=== PATIENT | male | born 1965 | race Caucasian/White ===

== ENCOUNTER → 2017-12-03 | Outpatient (REF) ==
[~2017-12-03] MED LIST: CEPH500C24 PO; OSE75 PO
== END ==
LOC: AUD 09:00
PROVIDERS: ATTEND Family Medicine
DX: Z01.10 Encounter for examination of ears and hearing without abnormal findings (principal)
CPT/HCPCS: 92552

== ENCOUNTER → 2018-12-06 | Outpatient (REF) | LOC: AUD 11:15 | PROVIDERS: ATTEND Family Medicine | DX: Z01.12 Encounter for hearing conservation and treatment (principal) | CPT/HCPCS: 92552 ==

== ENCOUNTER → 2019-01-01 | Outpatient (CLI) | payer BC ==
--- NOTE | 2019-01-01 17:54 | RADIOLOGY IMAGING REPORT ---
FACILITY: [facility] - [place] PATIENT NAME: Donald Tate : 1965 MR: [id number] V: [id number] EXAM DATE: ORDERING PHYSICIAN: RELL LEPE TECHNOLOGIST: Location: [facility] Patient: Donald Tate : 1965 Visit/Account:[id number] Date of Sevice: 01/01/2019 CT CHEST W/O CONTRAST COMPARISON: None. HISTORY: Abnormal results of pulmonary function studies. Decreased office parameter looking for IPF or other etiologies. Decreased vO2 max on stress testing compared to the previous year.. TECHNIQUE: Axial CT of the chest without intravenous contrast, "interstitial lung disease protocol", including discontiguous 1 mm and contiguous 3 mm axial reconstructions, limited prone and limited exp iratory sections. Coronal and sagittal reformats. One of the following dose optimization techniques was utilized in the performance of this exam: auto mated exposure control; adjustment of the mA and/or kV according to patient size; or use of iterative reconstruction technique. Specific details can be referenced in the facility's radiology CT exam op erational policy. CT CHEST FINDINGS: CARDIAC: Unremarkable. MEDIASTINUM/TYRELL: Unremarkable. No enlarged mediastinal nodes. No hilar adenopathy within the limi tations of a noncontrast study. VASCULATURE: Unremarkable. CHEST WALL: Unremarkable. No mass or axillary adenopathy. LUNGS/PLEURA: The lungs are well-inflated and clear. No fibrotic changes or sequela of interstitial lung disease. There is no honeycombing, reticular opacities, bronchiectasis, groundglass attenuation or centrilobular nodularity. Elevation, mass or effusion. No significant air trapping on expiratory i mages no clearing opacities on prone scan. BONES: Mild endplate spurring in the lower thoracic spine. No bony lesion or acute appearing fractu re. LIMITED ABDOMEN: Unremarkable. OTHER: Negative. IMPRESSION: No evidence of interstitial lung disease or pulmonary fibrosis. No cause for abnormal pulmonary funct ion tests identified. Report Dictated By: Mark Salgado at 01/01/2019 5:45 PM Report E-Signed By: Mark Salgado at 01/01/2019 5:50 PM WSN:[id number]
== END ==
LOC: CT 00:51
PROVIDERS: ATTEND Family Medicine
DX: R94.2 Abnormal results of pulmonary function studies (principal)
CPT/HCPCS: 71250